=== PATIENT | female | born 1995 | race African-American/Black ===

== ENCOUNTER 2022-07-01 08:37 | Emergency (ER) | payer SELFPAY ==
--- NOTE | 2022-07-01 08:46 | ED.FEMALEGU ---
HPI - Female Genitourinary General Chief complaint: Urogenital-Female Stated complaint: Vaginal Problems Time Seen by Provider: 07/01/22 08:47 Source: patient Mode of arrival: ambulatory Limitations: no limitations History of Present Illness HPI Narrative: Ms Mar is a 27 year old female patient presenting to the clinic today with c/o vaginal discharge times 2-3 days. She reports that her discharge is odorous and white. She denies any back pain or lower abdominal pain. She denies any fever chills. She denies any new sexual partners. States that she has recently changed her laundry detergent and feels as though this caused her to have a vaginal infection. She reports that she has had bacterial vaginosis in the past due to changing of soaps. She denies any pelvic pain or itching. Related Data Allergies Allergy/AdvReac Type Severity Reaction Status Date / Time No Known Allergies Allergy Verified 07/01/22 09:10 Review of Systems Review of Systems: Pertinent positives per HPI. Patient denies any fever, chills, rash, headache, visual changes, dizziness, cough, runny nose, sore throat, shortness of breath, chest pain, palpitations, nausea, vomiting, diarrhea, constipation, abdominal pain, or any urinary issues. PMFSH Comments At the time of my signature, I reviewed and agree with the nursing past medical, surgical, social, and family history. There is no relevant family history pertinent to the patient complaint. Exam Narrative: General: Well-developed, well nourished, in no apparent distress Head: Normocephalic, atraumatic. Cardio: Regular rate and rhythm, s1 and s2 normal, no murmur appreciated. Resp: Clear to auscultation bilaterally, no rhonchi, rales, wheezing or rubs. Abdomen: Soft, pliable, bowel sounds present in all quadrants, non-tender to palpation, no CVAT tenderness. :External pelvic exam performed with (Pinky FERGUSON) at bedside. Verbal consent obtained from patient. Normal external female genitalia without lesions or masses, Urinary meatus: patent without discharge or lesions Vagina: No lesions or mass seen during externa exam- foul smelling white discharge visualized on exam Course Course Emergency Course: Portions of this record may have been created with voice recognition software. Level of Care: Express Care Visit Vital Signs Vital signs: Vital Signs Temperature 36.7 C 07/01/22 08:49 Pulse Rate 87 07/01/22 08:49 Respiratory Rate 16 07/01/22 08:49 Blood Pressure 109/62 07/01/22 08:49 Pulse Oximetry 100 07/01/22 08:49 Oxygen Delivery Room Air 07/01/22 08:49 Temperature 36.7 C 07/01/22 08:49 Pulse Rate 87 07/01/22 08:49 Respiratory Rate 16 07/01/22 08:49 Blood Pressure 109/62 07/01/22 08:49 Pulse Oximetry 100 07/01/22 08:49 Oxygen Delivery Room Air 07/01/22 08:49 Vital signs reviewed MDM - Female Genitourinary MDM Narrative Medical decision making narrative: At the time of the patient is resting comfortably on the exam table. I suspect patient has bacterial vaginosis. Prescription for Metrogel was sent to the pharmacy and supportive measures were discussed with the patient she voiced understanding of discharge instructions and agrees to treatment plan. Differential Diagnosis Differential diagnosis: Likely bacterial vaginosis, cervicitis and vaginitis Discharge Plan Discharge Clinical Impression: Bacterial vaginosis Patient Disposition: Home, Self-Care Condition: Stable Instructions: Antibiotic Form, Bacterial Vaginosis (ED) Additional Instructions: Take Metrogel as prescribed No intercourse until treatment is completed and symptoms resolved Avoid using scented body wash/soaps/detergents and this can cause BV Follow up with your PCP in 1 week if symptoms persist or sooner if they worsen. Prescriptions: New metronidazole 0.75 % (37.5mg/5 gram) gel 1 appful vaginal HS 5 Days Qty: 70 0RF metronidazole 0.75 % (37.5
[2022-07-01 08:49] VITALS: BP 109/62; PULSE 87; RESP 16; TEMP 36.7; O2SAT 100
== END 2022-07-01 09:06 | disposition home or self-care (01) ==
PROVIDERS: Emergency Provider Nurse Practitioner Family
DX: N76.0 Acute vaginitis (principal); J45.909 Unspecified asthma, uncomplicated
CPT/HCPCS: 99204; G0463